=== PATIENT | male | born 1955 | race Caucasian/White ===

== ENCOUNTER 2016-09-22 18:35 | Observation (INO) | payer OTHER ==
[~2016-09-22] VITALS: Ht 167.6 cm; Wt 84.0 kg
[~2016-09-22 18:35] MED LIST: ASPIRIN325 MG PO; ASPIRIN81 M1 PO; ATORVASTATIN CA80 MG PO; CARVEDILOL6.25 MG PO; CHILD ASPIRIN81 M1 PO; CIPRO500 MG PO; CLOPIDOGREL75 MG PO; LO-DOSE ASPIRIN81 M2 PO; NAPROSYN500 MG PO; NITROSTAT0.4 MG SL; OMEPRAZOLE40 M1 PO; PRAVASTATIN SOD20 MG PO; PRILOSEC40 MG PO; WELCHOL3.75 GM PO
[2016-09-22 20:57] LABS: HEMATOCRIT 44.2 % (38.0-50.0); MCH 29.6 PG (29.0-34.0); MCHC 34.6 G/DL (30.0-36.0); MCV 85.5 FL (86-99); MEAN PLAT.VOLUME 9.7 uM^3 (9.0-12.4); PLATELET COUNT 219 K/uL (156-360); RBC DIS.WIDTH-CV 12.5 % (11.8-14.6); RED BLOOD COUNT 5.17 M/uL (4.00-5.50); WHITE BLOOD COUNT 6.3 K/uL (4.1-10.2)
[2016-09-22 21:06] LABS: CHLORIDE 107 mEq/L (99-109); POTASSIUM 4.3 mEq/L (3.7-5.4); SODIUM 141 mEq/L (136-147)
[2016-09-22 21:07] LABS: GLUCOSE 90 mg/dL (70-99)
[2016-09-22 21:09] LABS: ANION GAP 8 MEQ/L (2-14)
[2016-09-22 21:11] LABS: GFR ESTIMATE (CALCULATED) > 59 mL/min/
[2016-09-22 21:12] LABS: UREA NITROGEN (BUN) 18 mg/dL (9-23)
[2016-09-22 21:19] LABS: TROP-I INTERPRETATION NEGATIVE; TROPONIN-I < 0.01 ng/mL (0.0-0.30)
[2016-09-22] MEDS ORDERED: LISINOPRIL5 MG PO (22:08)
[2016-09-22] MEDS ORDERED: PLAVIX75 MG PO (22:08)
[2016-09-22 23:15] VITALS: BP 119/60
[2016-09-23 02:42] LABS: TROP-I INTERPRETATION NEGATIVE; TROPONIN-I < 0.01 ng/mL (0.0-0.30)
[2016-09-23 05:20] VITALS: BP 100/57
[2016-09-23 09:00] VITALS: BP 107/64
[2016-09-23 09:56] LABS: TROP-I INTERPRETATION NEGATIVE; TROPONIN-I < 0.01 ng/mL (0.0-0.30)
[2016-09-23] MEDS ORDERED: PRILOSEC20 MG PO (11:54)
[2016-09-23 12:53] VITALS: BP 116/66
== END 2016-09-23 14:25 | disposition home or self-care (01) ==
LOC: EME 18:35 → EDOF 22:06 → 5WEST 23:03
PROVIDERS: Nurse Practitioner Family
DX: R07.9 Chest pain, unspecified (principal); I25.10 Atherosclerotic heart disease of native coronary artery without angina pectoris; E78.5 Hyperlipidemia, unspecified; K21.9 Gastro-esophageal reflux disease without esophagitis; I25.2 Old myocardial infarction; Z87.19 Personal history of other diseases of the digestive system
CPT/HCPCS: 71020; 80048; 84484; 85027; 93005; 99281; 99285; G0378; J1644; J7030

== ENCOUNTER 2017-08-16 17:23 | Observation (INO) | payer OTHER ==
[~2017-08-16] VITALS: Ht 167.6 cm; Wt 95.3 kg
[~2017-08-16 17:23] MED LIST changes: +LISINOPRIL5 MG PO; +PLAVIX75 MG PO; +PRILOSEC20 MG PO
[2017-08-16 18:17] LABS: HEMATOCRIT 39.8 % (38.0-50.0); HEMOGLOBIN 14.2 G/DL (12.5-16.6); MCH 30.7 PG (29.0-34.0); MCHC 35.7 G/DL (30.0-36.0); PLATELET COUNT 206 K/uL (156-360); RBC DIS.WIDTH-CV 12.7 % (11.8-14.6); RBC DIS.WIDTH-SD 39.7 % (39-53); RED BLOOD COUNT 4.63 M/uL (4.00-5.50); WHITE BLOOD COUNT 6.7 K/uL (4.1-10.2)
[2017-08-16 18:25] LABS: CHLORIDE 105 mEq/L (99-109); POTASSIUM 4.1 mEq/L (3.7-5.4); SODIUM 139 mEq/L (136-147)
[2017-08-16 18:27] LABS: GLUCOSE 84 mg/dL (70-99)
[2017-08-16 18:31] LABS: GFR ESTIMATE (CALCULATED) > 59 mL/min/ (58.99-99999)
[2017-08-16 18:32] LABS: UREA NITROGEN (BUN) 26 mg/dL (9-23)
[2017-08-16 18:39] LABS: TROP-I INTERPRETATION NEGATIVE; TROPONIN-I 0.01 ng/mL (0.0-0.30)
[2017-08-16] MEDS ORDERED: PRILOSEC20 MG PO (18:56)
[2017-08-16] MEDS ORDERED: KRILL OIL500 MG PO (18:57)
[2017-08-16 20:23] LABS: D-DIMER ELISA < 150.00 ng/mLDDU (<230)
[2017-08-16 22:00] VITALS: BP 126/69
[2017-08-17 00:25] VITALS: BP 102/55
[2017-08-17 01:11] LABS: TROP-I INTERPRETATION NEGATIVE; TROPONIN-I 0.01 ng/mL (0.0-0.30)
[2017-08-17 03:20] VITALS: BP 113/70
[2017-08-17 05:25] LABS: HDL CHOLESTEROL 37 MG/DL (Desirable>=40); LDL CHOLESTEROL 62 mg/dL (Desirable<100); NON-HDL CHOLESTEROL 91 mg/dL (Desirable<160); TOTAL CHOLESTEROL 128 mg/dL (Desirable<200); TRIGLYCERIDES 144 MG/DL (Normal: <150)
[2017-08-17 05:47] LABS: TROP-I INTERPRETATION NEGATIVE; TROPONIN-I < 0.01 ng/mL (0.0-0.30)
[2017-08-17 07:03] VITALS: BP 106/63
[2017-08-17 11:30] VITALS: BP 135/65
[2017-08-17 15:43] VITALS: BP 111/63
== END 2017-08-17 17:49 | disposition home or self-care (01) ==
LOC: EME 17:23 → EDOF 19:22 → ENRESERV 19:25 → 4SOUTH 21:58
PROVIDERS: Emergency Medicine; Physician Assistant Medical
DX: I25.119 Atherosclerotic heart disease of native coronary artery with unspecified angina pectoris (principal); I25.2 Old myocardial infarction; Z95.5 Presence of coronary angioplasty implant and graft; E78.5 Hyperlipidemia, unspecified; K22.70 Barrett's esophagus without dysplasia; K21.9 Gastro-esophageal reflux disease without esophagitis; K44.9 Diaphragmatic hernia without obstruction or gangrene; N40.0 Benign prostatic hyperplasia without lower urinary tract symptoms; E66.9 Obesity, unspecified; Z68.34 Body mass index [BMI] 34.0-34.9, adult; I11.0 Hypertensive heart disease with heart failure; Z79.82 Long term (current) use of aspirin; I42.9 Cardiomyopathy, unspecified
CPT/HCPCS: 71046; 80048; 80061; 84484; 85027; 85379; 93005; 99281; 99285; G0378